=== PATIENT | female | born 1980 | race Caucasian/White ===

== ENCOUNTER 2018-03-14 17:53 | Emergency (ER) | payer OTHER ==
[~2018-03-14] VITALS: Ht 165.1 cm; Wt 104.5 kg
[~2018-03-14 17:53] MED LIST: HYDR-4069 PO; MORP60TA6 PO
[2018-03-14] MEDS ORDERED: ONDANSETRON HCL 4 MG/2 ML VIAL IVP ONE (19:30)
[2018-03-14] MEDS ORDERED: MORPHINE SULFATE 4 MG/ML SYRINGE IVP ONE (19:30)
[2018-03-14 20:59] VITALS: BP 130/76
[2018-03-14] MEDS ORDERED: HYDROCODONE/ACETAMINOPHEN 5-325 MG TABLET PO ONE (21:15)
[2018-03-14] MEDS ORDERED: KETOROLAC TROMETHAMINE 30 MG/ML VIAL IVP ONE (21:15)
== END 2018-03-14 21:30 | disposition home or self-care (01) ==
LOC: EMS 17:54
DX: S42.341A Displaced spiral fracture of shaft of humerus, right arm, initial encounter for closed fracture (principal); J45.909 Unspecified asthma, uncomplicated; F17.210 Nicotine dependence, cigarettes, uncomplicated; Z71.6 Tobacco abuse counseling; Z98.890 Other specified postprocedural states; Z79.899 Other long term (current) drug therapy; W01.0XXA Fall on same level from slipping, tripping and stumbling without subsequent striking against object, initial encounter; Y93.89 Activity, other specified; Y92.098 Other place in other non-institutional residence as the place of occurrence of the external cause; Y99.8 Other external cause status
CPT/HCPCS: 73060; 81025; 96374; 96375; 99284; 99406; J1885; J2270; J2405; 29240

== ENCOUNTER 2019-11-25 20:05 | Emergency (ER) | payer SELFPAY ==
[~2019-11-25] VITALS: Ht 167.6 cm; Wt 100.0 kg
[2019-11-25] MEDS ORDERED: LIDOCAINE 5% TRANSDERMAL PATCH TD ONE (22:15)
[2019-11-25] MEDS ORDERED: ACETAMINOPHEN 325 MG TABLET PO ONE (22:15)
[2019-11-25] MEDS ORDERED: IBUPROFEN 400 MG TABLET PO ONE (22:15)
[2019-11-25 23:40] VITALS: BP 126/76
== END 2019-11-26 00:10 | disposition home or self-care (01) ==
LOC: EMS 20:07
DX: S42.391D Other fracture of shaft of right humerus, subsequent encounter for fracture with routine healing (principal); F17.210 Nicotine dependence, cigarettes, uncomplicated; Z79.899 Other long term (current) drug therapy; X58.XXXD Exposure to other specified factors, subsequent encounter